=== PATIENT | male | born 1950 | race Caucasian/White ===

== ENCOUNTER 2016-07-27 16:14 | Emergency (ER) | payer MEDICAID ==
[~2016-07-27] VITALS: Ht 162.6 cm; Wt 52.2 kg
[2016-07-27 16:18] VITALS: BP 125/81; PULSE 102; RESP 16; TEMP 97.6; O2SAT 96
--- NOTE | 2016-07-27 16:29 | NUR ---
Patient triaged and placed in waiting room. VSS and patient appears in no acute distress at this time. Accompanied by FAMILY, awaiting available bed, and MD notified of need for MSE.
[2016-07-27 18:22] LABS: BASOPHILS # (AUTO) 0.2 K/uL (0.0-0.2); BASOPHILS % (AUTO) 1.7 % (0.0-2.0); EOSINOPHILS % (AUTO) 0.1 % (0.0-4.0); HEMATOCRIT 46.1 % (36-54); HEMOGLOBIN 15.6 g/dL (14.0-18.0); LYMPHOCYTES % (AUTO) 17.9 % (20.5-51.5); MEAN CORPUSCULAR HEMOGLOBIN 32 pg (27-31); MEAN CORPUSCULAR HGB CONC 34 % (32-36); MEAN CORPUSCULAR VOLUME 94 fL (79.0-98.0); MONOCYTES # (AUTO) 0.8 K/uL (0.0-1.0); MONOCYTES % (AUTO) 6.8 % (1.7-9.3); NEUTROPHILS # (AUTO) 8.1 K/uL (1.8-7.7); NEUTROPHILS % (AUTO) 73.5 % (40.0-70.0); PLATELET COUNT (AUTO) 388 K/uL (130-430); RED BLOOD CELL COUNT(AUTO) 4.89 MIL/uL (4.2-6.2); RED CELL DISTRIBUTION WIDTH 13.1 % (9.0-15.0); WHITE BLOOD COUNT (AUTO) 11.1 K/uL (4.8-10.8)
[2016-07-27 18:33] LABS: ANION GAP 8 (5-15); CALCIUM 9.1 mg/dL (8.4-11.0); CHLORIDE 99 mmol/L (98-107); CREATININE 1.37 mg/dL (0.55-1.30); GLUCOSE 237 mg/dL (70-99); SODIUM SERUM 135 mmol/L (136-145); UREA NITROGEN, BLOOD 21 mg/dL (8-21)
[2016-07-27 18:34] LABS: INR 0.9 (0.80-1.20); PROTHROMBIN TIME 10.2 SECS (9.5-12.5)
[2016-07-27 18:36] LABS: GFR AFRICAN AMERICAN 67 mL/min (>90)
[2016-07-27 18:37] LABS: ALANINE AMINOTRANSFERASE 38 U/L (12-78); ALBUMIN 4.1 g/dL (3.4-4.8); ASPARTATE AMINOTRANSFERASE 35 U/L (10-37); TOTAL BILIRUBIN 0.8 mg/dL (0.0-1.0)
[2016-07-27 18:38] LABS: ACETAMINOPHEN < 1 ug/mL (1-30); ALCOHOL, BLOOD < 3 mg/dL (<10); SALICYLATE < 1 mg/dL (3-30)
--- NOTE | 2016-07-27 19:02 | NUR ---
Patient to ER bed 7 to gown for evaluation. Side rails up. Report given to JL LEONARDO.
--- NOTE | 2016-07-27 19:11 | NUR ---
Patient brought in by family to ER for evaluation. Family states that in the last month patient has been more and more confused and agitated. Family took the patient for evaluation to 3-4 hospitals in the area where he had a battery of tests and was discharged with dementia. Patient is oriented to person only, denies pain, denies N/V, unlabored breathing, no signs of acute distress. Patient states that nothing is wrong and he would like to go home.
--- NOTE | 2016-07-27 19:17 | NUR ---
ER MD Strange at bedside for evaluation
[2016-07-27] MEDS ORDERED: LORazepam 2 MG/ML VIAL IM ONE (19:45)
[2016-07-27] MEDS ORDERED: LORazepam 2 MG/ML VIAL (FOR ER USE) ONE (20:00)
--- NOTE | 2016-07-27 20:16 | NUR ---
Patient off the unit via wheelchair for CT
--- NOTE | 2016-07-27 20:56 | NUR ---
ER MD Pro at bedside discussing plan of care and discharge with patient and family.
[2016-07-27 21:09] LABS: BARBITURATE, URINE NEGATIVE (NEG <=200); BENZODIAZEPINE, URINE NEGATIVE (NEG <=150); CANNABINOID, URINE NEGATIVE (NEG <=50); COCAINE, URINE NEGATIVE (NEG <=150); METHAMPHETAMINES SCREEN,URINE NEGATIVE (NEG <=500); OPIATE, URINE NEGATIVE (NEG <=100); PHENCYCLIDINE SCREEN,URINE NEGATIVE (NEG <=25); UR TRICYCLIC ANTIDEPRESSANTS NEGATIVE (NEG <=300); URINE AMPHETAMINE NEGATIVE (NEG <=500); URINE METHADONE NEGATIVE (NEG <=200); URINE OXYCODONE SCREEN NEGATIVE (NEG <=100); URINE PROPOXYPHENE SCREEN NEGATIVE (NEG <=300)
[2016-07-27 21:22] LABS: BILIRUBIN,URINE NEGATIVE (NEGATIVE); BLOOD, URINE NEGATIVE (NEGATIVE); CLARITY/URINE CLEAR (CLEAR); COLOR,URINE YELLOW (YELLOW); GLUCOSE,URINE TRACE (NEGATIVE); KETONES,URINE NEGATIVE (NEGATIVE); LEUKOCYTE ESTERASE ,URINE NEGATIVE (NEGATIVE); NITRITE, URINE NEGATIVE (NEGATIVE); PH,URINE 6.5 (5.0-8.0); PROTEIN URINE NEGATIVE (NEGATIVE); UROBILINOGEN,URINE 0.2 (0.2-1.0)
[2016-07-27 21:25] VITALS: BP 107/51; PULSE 72; RESP 15; TEMP 98; O2SAT 96
--- NOTE | 2016-07-27 21:25 | NUR ---
Patient's guardian given written and verbal discharge instructions and verbalizes understanding. ER MD Pro discussed with patient's guardian the results and treatment provided. Patient in stable condition. ID arm band removed. Rx of ativan given. Patient's guardian educated on pain management, fever management, and to follow up with primary physician. Pain Scale/FLACC 0/10. Opportunity for questions provided and answered.
== END 2016-07-27 21:25 | disposition home or self-care (01) ==
LOC: SED 16:14
DX: F41.9 Anxiety disorder, unspecified (principal); R41.82 Altered mental status, unspecified; I10 Essential (primary) hypertension; Z86.59 Personal history of other mental and behavioral disorders
CPT/HCPCS: 36415; 70450; 80053; 80307; 81003; 84484; 85025; 85610; 85730; 93005; 96372; 99285; G0480; G0481; G0482; J2060

== ENCOUNTER 2016-08-19 09:39 | Emergency (ER) | payer MEDICAID ==
[~2016-08-19] VITALS: Ht 154.9 cm; Wt 54.4 kg
--- NOTE | 2016-08-19 09:55 | NUR ---
Dr. mccann examining pt in triage
[2016-08-19 09:56] VITALS: BP_SYST 159
[2016-08-19 10:26] VITALS: BP_SYST 135
--- NOTE | 2016-08-19 10:27 | NUR ---
Patient given written and verbal discharge instructions and verbalizes understanding. ER MD discussed with patient the results and treatment provided. Given copies of tests performed in ER. Patient in stable condition. ID arm band removed. Rx of ATIVAN given. Patient educated on pain management and to follow up with PMD. Pain Scale 0/10. Opportunity for questions provided and answered.
== END 2016-08-19 10:27 | disposition home or self-care (01) ==
LOC: SED 09:39
DX: F41.9 Anxiety disorder, unspecified (principal); G47.00 Insomnia, unspecified; I10 Essential (primary) hypertension; Z86.59 Personal history of other mental and behavioral disorders
CPT/HCPCS: 99283